=== PATIENT | female | born 1970 | race Caucasian/White ===

== ENCOUNTER 2020-07-01 13:46 | Emergency (ER) | payer OTHER ==
[~2020-07-01] VITALS: Ht 170.1 cm; Wt 63.5 kg
[2020-07-01] MEDS ORDERED: DOXYCYCLINE100 M3 PO (15:09)
== END 2020-07-01 15:40 | disposition home or self-care (01) ==
LOC: ED 13:46
PROVIDERS: Physician Assistant
DX: S20.362A Insect bite (nonvenomous) of left front wall of thorax, initial encounter (principal); W57.XXXA Bitten or stung by nonvenomous insect and other nonvenomous arthropods, initial encounter; Y93.89 Activity, other specified; Y92.89 Other specified places as the place of occurrence of the external cause; Y99.8 Other external cause status